=== PATIENT | male | born 1945 | race Caucasian/White ===

== ENCOUNTER → 2022-03-16 | Outpatient (CLI) | payer BC, OTHER ==
[~2022-03-16] MED LIST: ATOR1TAB21 PO; LOSA50TA28 PO; METF10004 PO; NESI25TA PO; OMEP1CAP73 PO; TERA1CAP3 PO; TRAM50TA2 PO
== END ==
LOC: M LABSMTC 10:56
PROVIDERS: ATTEND Anesthesiology
DX: Z01.812 Encounter for preprocedural laboratory examination (principal); Z11.52 Encounter for screening for COVID-19

== ENCOUNTER 2022-03-21 06:11 | Day surgery (SDC) | payer OTHER ==
[~2022-03-21] VITALS: Ht 167.6 cm; Wt 90.4 kg
[2022-03-21] MEDS: FLURBIPROFEN 0.03% OPHTH SOLN 2.5 ML OS SCH ×2 (06:27→06:44)
[2022-03-21] MEDS: CYCLOPENTOLATE 1% OPHTH SOLN 2 ML BTL OS SCH ×3 (06:27→06:44)
[2022-03-21] MEDS: PHENYLEPHRINE 2.5% OPHTH SOL 2ML OS SCH ×2 (06:27→06:44)
[2022-03-21] MEDS: TETRACAINE 0.5% OPHTH SOLN 4ML OS SCH ×2 (06:27→06:44)
[2022-03-21] MEDS ORDERED: ACETYLCHOLINE OPHTH SOLN 1% 2ML (MIOCHOL-E) As Ordered ONE (06:34)
[2022-03-21] MEDS ORDERED: LIDOCAINE 1% SDV 5ML VIAL As Ordered ONE (06:34)
[2022-03-21] MEDS ORDERED: LR 1,000 ML IV SCH (07:00)
[2022-03-21] MEDS ORDERED: MIDAZOLAM INJ 2MG/2ML VIAL (J2250 PER 1MG) As Ordered ONE (07:02)
[2022-03-21] MEDS ORDERED: fentaNYL 100 MCG/2 ML INJECTION As Ordered ONE (07:04)
[2022-03-21 08:07] VITALS: BP 147/72
== END 2022-03-21 08:30 | disposition home or self-care (01) ==
LOC: M SDC 06:11
PROVIDERS: ATTEND Ophthalmology
DX: H25.12 Age-related nuclear cataract, left eye (principal); I10 Essential (primary) hypertension; E11.9 Type 2 diabetes mellitus without complications; E78.5 Hyperlipidemia, unspecified; Z79.899 Other long term (current) drug therapy; Z79.84 Long term (current) use of oral hypoglycemic drugs; Z79.82 Long term (current) use of aspirin; Z79.891 Long term (current) use of opiate analgesic
CPT/HCPCS: 66984; J2250; J3010; V2632